=== PATIENT | female | born 1930 | race Caucasian/White ===

== ENCOUNTER 2018-08-04 20:18 | Inpatient (IN) | payer OTHER, MEDICARE ==
[~2018-08-04] VITALS: Ht 165.1 cm; Wt 90.7 kg
--- NOTE | 2018-08-04 20:50 | NUR ---
PT BIB [facility]. DAUGHTER REPORTS 3 UNWITNESSED FALLS AND INCREASED CONFUSION X3 DAYS. NO LOC OR N/V REPORTED. UNK IF PT HIT HEAD. NO TRAUMA TO HEAD NOTED. PT REPORTS PAIN IN [place] KNEES. ABRASION NOTED TO LEFT KNEE. TENDERNESS NOTED TO [place] LOWER EXTREMETIES. +1 PITTING EDEMA NOTED TO SKYLER LOWER EXTREMETIES. DAUGHTER REPORTS SWELLING IN FACE. PER MEDIC, PT HAD BLOODY NOSE ON SCENE, RESOLVED EN ROUTE. PER DAUGHTER, PT HAS BEEN ASKING FOR FAMILY THAT ISN'T PRESENT, AND LOOKING FOR OBJECTS THAT AREN'T THERE FOR THE PAST 3 DAYS, WHICH IS UNUSUAL FOR PT. PT A&O X4. GCS 15. LUNG SOUNDS CLEAR, BREATHING SLIGHTLY LABORED. PT SATURATING AT 93%, PLACED ON 2L O2 VIA NC. PT PLACED ON CHIEF PETROLEUM ENGINEER.
[2018-08-04 20:51] VITALS: Ht 165.1 cm; Wt 90.7 kg
--- NOTE | 2018-08-04 21:36 | NUR ---
PT AWAKE AND ALERT, SPEAKING IN FULL SENTENCES, ANSWERING QUESTIONS APPROPRIATELY. LAYING IN POSITION OF COMFORT, 2 BED RAILS UP, BED IN LOW AND LOCKED POSITION. VSS, RESPS E/U, NAD NOTED. CALL LIGHT W/IN REACH. DAUGHTER AT BEDSIDE.
--- NOTE | 2018-08-04 22:35 | NUR ---
PT AWAKE AND ALERT, LAYING IN POSITION OF COMFORT. 2 BED RAILS UP, BED IN LOW AND LOCKED POSITION. CALL LIGHT W/IN REACH. VSS, RESPS E/U, NAD NOTED ATHIS TIME. AWAITING ORDERS.
[2018-08-04 23:33] LABS: PLATELET COUNT 172 x10^3mcL (130-400); RED CELL DISTRIBUTION WIDTH 13.6 % (11.5-14.5)
--- NOTE | 2018-08-04 23:35 | NUR ---
PT TAKEN TO CT VIA ANNALEE
[2018-08-04 23:55] LABS: BAND NEUTROPHIL 6 % (0-10); BASOPHIL 0 % (0-2); MONOCYTE 5 % (0-7); PLATELET MORPHOLOGY PLATELETS NORMAL; SEGMENTED NEUTROPHILS 86 % (37-75); rbc morphology (normal/abnorm) NORMAL (NORMAL)
[2018-08-04 23:59] LABS: CALCIUM 9.7 mg/dL (8.5-10.1); CARBON DIOXIDE 27.7 mmol/L (21-32); CHLORIDE SERUM 108 mmol/L (98-107); CREATININE SERUM 1.8 mg/dL (0.6-1.0); GLUCOSE SERUM 124 mg/dL (74-106); SODIUM SERUM 143 mmol/L (136-145)
--- NOTE | 2018-08-05 00:06 | NUR ---
ABX STARTED PER MD ORDER. PT AWAKE AND ALERT, LAYING IN POSITION OF COMFORT. 2 BED RAILS UP, BED IN LOW AND LOCKED POSITION. VSS, RESPS E/U, NAD NOTED. DAUGHTER AT BEDSIDE
[2018-08-05 00:12] LABS: ALKALINE PHOSPHATASE 72 U/L (46-116); ALT/SGPT 22 U/L (14-59); AST/SGOT 29 U/L (15-37); FREE T4 1.25 ng/dL (0.76-1.46); LIPASE 125 IU/L (73-393); TOTAL PROTEIN, SERUM 6.4 g/dL (6.4-8.2)
[2018-08-05 00:15] LABS: ALBUMIN 2.9 g/dL (3.4-5.0)
[2018-08-05 00:20] LABS: microscopic required? YES; urine erythrocyte 2+ (NEGATIVE)
[2018-08-05] MEDS ORDERED: AMLODIPINE BES2.5 M1 (00:47)
--- NOTE | 2018-08-05 00:52 | NUR ---
REPORT GIVEN TO ISSA BERG
--- NOTE | 2018-08-05 02:00 | NUR ---
RECIEVED PT VIA [facility] FROM E/D, ACCOMPANIED BY RN AND TRANSPORTER AND PT'S GRANDDAUGHTER, DENIS. PT IS ALERT AND ORIENTED X3. CALM AND COOPERATIVE WITH CARE. WEARS BILATERAL HEARING AIDS, AND UPPER AND LOWER DENTURES. PT IS BEDFAST AT THIS TIME. PT DENIES CHEST PAIN OR DISCOMFORT AT THIS TIME. NO ACUTE RESP DISTRESS NOTED, ABD IS SOFT, ROUND AND NON-TENDER. NORMOACTIVE BOWEL SOUNDS IN ALL 4 QUADRANTS, PT HAS LEFT KNEE ABRASION NOTED, PICTURES IN CHART, IV SITE LEFT WRIST 20 GAUGE, PT HAS POSITIVE JVD TO THE LEFT SIDE OF NECK, LUNGS CTAB, BREATHING IS EQUAL AND UNLABORED. PT IS ON 2L O2 VIA NC. ORIENTATED PT AND GRANDDAUGHTER TO ROOM, BED CONTROLS, CALL LIGHT SYSTEM. SIDE RAILS UP X2, BED IN LOWEST POSITION, CALL LIGHT WITHIN REACH.
[2018-08-05 02:28] VITALS: BP 113/47
--- NOTE | 2018-08-05 03:48 | NUR ---
PT IS RESTING IN BED WITH EYES CLOSED AT THIS TIME. NO ACUTE DISTRESS NOTED. PT IS ON 2L O2 VIA NC, NO ACUTE RESP DISTRESS NOTED. IVP LASIX GIVEN. SAFETY AND COMFORT MEASURES MAINTAINED, BED IN LOWEST POSITION, CALL LIGHT WITHIN REACH.
--- NOTE | 2018-08-05 05:13 | NUR ---
PT HAS RESTED IN INTERMITTENT INTERVALS THROUGHOUT THE SHIFT. PT HAS BEEN CALM AND COOPERATIVE WITH CARE AT THIS TIME. NO ACUTE DISTRESS NOTED. NO S/S OF PAIN NOTED. PT HAS NO COMPLAINT OF PAIN AT THIS TIME. SAFETY AND COMFORT MEASURES MAINTAINED, BED IN LOWEST POSITION, CALL LIGHT WITHIN REACH. FALL PRECAUTIONS IN PLACE. WILL ENDORSE CONTINUITY OF CARE TO THE ONCOMING RN.
[2018-08-05 05:30] VITALS: BP 114/49
--- NOTE | 2018-08-05 07:01 | NUR ---
RECEIVED REPORT FROM ISSA BERG. PT RESTING COMFORTABLY IN BED HAVING ULTRASOUND OF THE CAROTID DONE. PER TECH USV WILL BE DONE ALSO. SALINE LOCK TO LT WRIST IS PATENT AND INTACT. NO REDNESS OR PAIN. TELE # [address] NO INDICATION OF CHEST PAIN. PT ON O2 2L NC. NO C/O SOB AND NO DISTRESS NOTED. ALL QUESTIONS AND CONCERNS ADDRESSED.
[2018-08-05 07:55] LABS: BASOPHIL % 0.1 % (0-2); PLATELET COUNT 163 x10^3mcL (130-400); RED CELL DISTRIBUTION WIDTH 13.4 % (11.5-14.5)
[2018-08-05 08:01] LABS: CALCIUM 9.6 mg/dL (8.5-10.1); CARBON DIOXIDE 25.4 mmol/L (21-32); CHLORIDE SERUM 110 mmol/L (98-107); CREATININE SERUM 1.7 mg/dL (0.6-1.0); GLUCOSE SERUM 137 mg/dL (74-106); MAGNESIUM 1.9 mg/dL (1.8-2.4); PHOSPHOROUS 4.3 mg/dL (2.5-4.9); POTASSIUM SERUM 4.3 mmol/L (3.5-5.1); SODIUM SERUM 144 mmol/L (136-145)
[2018-08-05 08:50] VITALS: BP 97/34
--- NOTE | 2018-08-05 08:58 | NUR ---
X RAY IN TO SEE PATIENT.
--- NOTE | 2018-08-05 09:01 | NUR ---
ROUNDS: DR ROBLES, RESIDENTS, AND PRIMARY RN AT BEDSIDE. DISCUSSED PLAN OF CARE. INQUIRED TO WHETHER OR NOT PATIENT HAS EVER HAD HEART PROBLEMS OR HAS BEEN SEEN BY A PAINTER STRUCTURAL STEEL. PT REPORTED NO. NO C/O PAIN, SOB, OR PAIN WITH URINATION. PLAN IS TO HAVE CARDIOLOGY CONSULT AND PT EVAL. ALL QUESTIONS AND CONCERNS ADDRESSED. DR SEBASTIAN ALSO INFORMED OF LOW BP 97/34.
--- NOTE | 2018-08-05 11:01 | NUR ---
PT HAVING EKG.
--- NOTE | 2018-08-05 12:00 | NUR ---
PT HAVING ECHO NOW.
[2018-08-05 12:10] VITALS: BP 127/47
--- NOTE | 2018-08-05 13:35 | NUR ---
NOTIFIED DR SEBASTIAN THAT BOLUS WAS DISCONTINUED BEFORE I WAS ABLE TO ADMINISTER HOWEVER, PATIENT'S BP HAS IMPROVED 127/[address] SEBASTIAN OK.
--- NOTE | 2018-08-05 14:17 | NUR ---
NOTIFIED DR SEBASTIAN THAT TROPONIN CONTINUES TO TREND DOWN. CURRENTLY 0.705
--- NOTE | 2018-08-05 15:24 | NUR ---
IN TO SEE PATIENT AND ASSESS NEEDS AFTER LUNCH. PT RESTING COMFORTABLY IN BED. ALL NEEDS MET.
[2018-08-05 17:40] VITALS: BP 125/49
--- NOTE | 2018-08-05 18:50 | NUR ---
REPORT GIVEN TO ISSA BERG. PATIENT RESTING COMFORTABLY IN BED. ALL NEEDS MET. IV TO LEFT WRIST IS PATENT AND INTACT. NO REDNESS OR PAIN. NO C/O PAIN. PT ON ROOM AIR. NO C/O SOB AND NO DISTRESS NOTED. ALL QUESTIONS AND CONCERNS ADDRESSED.
--- NOTE | 2018-08-05 19:15 | NUR ---
PT RECIEVED FROM THE DAY SHIFT RN. PT IS ALERT AND ORIENTED X3, CALM AND COOPERATIVE WITH CARE. PT IS ON ROOM AIR, NO ACUTE RESP DISTRESS NOTED. PT HAS NO COMPLAINT OF PAIN AT THIS TIME. SAFETY AND COMFORT MEASURES MAINTAINED, BED IN LOWEST POSITION, CALL LIGHT WITHIN REACH.
[2018-08-05 21:12] VITALS: BP 101/63
--- NOTE | 2018-08-06 00:01 | NUR ---
PT IS RESTING IN BED WITH EYES CLOSED AT THIS TIME. NO S/S OF PAIN. PT HAS BEEN CALM AND COOPERATIVE WITH CARE. SAFETY AND COMFORT MEASURES MAINTAINED, BED IN LOWEST POSITION, CALL LIGHT WITHIN REACH. WILL CONTINUE TO MONITOR AT THIS TIME.
--- NOTE | 2018-08-06 03:59 | NUR ---
PT IS RESTING IN BED WITH EYES CLOSED. NO ACUTE DISTRESS NOTED. PT HAS BEEN CALM AND COOPERATIVE WITH CARE. SAFETY AND COMFORT MEASURES MAINTAINED, BED IN LOWEST POSITION, CALL LIGHT WITHIN REACH.
--- NOTE | 2018-08-06 05:03 | NUR ---
PT HAS SLEPT IN LONG INTERVALS THROUGHOUT THE SHIFT, PT HAS BEEN ALERT AND ORIENTED X3, WITH CONFUSION SPELLS AT TIMES. PT HAS BEEN CALM AND COOPERATIVE WITH CARE. PT IS ON ROOM AIR AT THIS TIME. NO COMPLAINT OF PAIN. IV PATENT AND INTACT, SAFETY AND COMFORT MEASURES MAINTAINED, BED IN LOWEST POSITION, CALL LIGHT WITHIN REACH. WILL ENDORSE CONTINUITY OF CARE TO THE ONCOMING RN.
--- NOTE | 2018-08-06 05:14 | NUR ---
PT RHYTHM CHANGED TO JUNCTIONAL RHYTHM WITH A BBB AND DEPRESSED ST. DR WILKINS MADE AWARE AND ORDERED EKG. NO FURTHER ORDERS GIVEN.
[2018-08-06 05:46] VITALS: BP 136/53
[2018-08-06 06:43] LABS: BASOPHIL % 0.2 % (0-2); PLATELET COUNT 170 x10^3mcL (130-400); RED CELL DISTRIBUTION WIDTH 13.9 % (11.5-14.5)
[2018-08-06 06:51] LABS: CALCIUM 9.1 mg/dL (8.5-10.1); CARBON DIOXIDE 29.2 mmol/L (21-32); CHLORIDE SERUM 108 mmol/L (98-107); CREATININE SERUM 1.7 mg/dL (0.6-1.0); GLUCOSE SERUM 105 mg/dL (74-106); MAGNESIUM 1.8 mg/dL (1.8-2.4); PHOSPHOROUS 2.8 mg/dL (2.5-4.9); POTASSIUM SERUM 4.3 mmol/L (3.5-5.1); SODIUM SERUM 144 mmol/L (136-145)
--- NOTE | 2018-08-06 07:31 | NUR ---
REPORT RECEIVED. PATIENT ASLEEP ON BEDSIDE ROUNDS. RR 18 AND NOT IN APPARENT DISTRESS. BED LOW LOCKED AND ALARM ON. CALL MARTINEZ WITHIN REACH.
[2018-08-06 09:15] VITALS: BP 127/52
--- NOTE | 2018-08-06 10:23 | NUR ---
FAMILY MEMBER HERE AND WAITING FOR MORE INFORMATION RE- PATIENT EVEN AFTER MD ROBLES ANSWERED HER QUESTIONS. PAGED MD SEBASTIAN THE SECOND TIME.
--- NOTE | 2018-08-06 11:39 | NUR ---
MD SEBASTIAN SPOKE WITH VISITOR DENIS FOR UPDATE.
[2018-08-06 13:06] VITALS: BP 122/45
--- NOTE | 2018-08-06 14:13 | NUR ---
PT WAS SEEN FOR DYSPHAGIA. PT WAS ABLE TO SAFELY SWALLOW MS DIET WITH NECTAR THICK LIQUID. MILD COUGH FOR THIN LIQUID AND WET VOICE. RECOMMENDATION MS DIET WITH NECTAR THICK LIQUID SMALL BITES AND SIPS ONLY.
[2018-08-06 16:44] VITALS: BP 111/42
--- NOTE | 2018-08-06 17:01 | NUR ---
SEEN BY SPEECH THEREAPIST EARLIER TODAY. PLACED ON MODIFIED DIET. ASLEEP AT THIS TIME.
--- NOTE | 2018-08-06 19:21 | NUR ---
REPORT GIVEN TO MORENA LAGUERRE.
--- NOTE | 2018-08-06 20:42 | NUR ---
RECEIVED PT IN BED EATING [facility]. SOFT DINNER TOLERATING WELL ,PT'S AAOX3 NO ACUTE DISTRESS NOTED , [place] NOTED, LUNG SOUNDS CTA , ABD SOFT BS ACTIVE X4 , SKIN DRY WARM TO TOUCH , PIV INTACT INFUSING WELL . CALL LIGTH WITHIN PT'S REACH . WILL CON'T TO MONITOR AND ASSIST PT WITH CARE.
[2018-08-06 21:54] VITALS: BP 125/36
--- NOTE | 2018-08-06 23:00 | NUR ---
I HAVE REVIEWED THE DATA COLLECTION BY GRISELDA (NAME):CARLOTTA TELLEZ ENTERED ON (DATE/TIME):08/06/18 7P-7A I CONCUR WITH THE DATA AND ANY EXCEPTIONS OR COMMENTS ARE LISTED BELOW:
--- NOTE | 2018-08-06 23:53 | NUR ---
AT 1945 RECEIVED SBA REPORT AT BED , PT'S AAOX3 NO ACUTE DISTRESS NOTED , [place] NOTED, LUNG SOUNDS CTA , ABD SOFT BS ACTIVE X4,
--- NOTE | 2018-08-07 00:04 | NUR ---
PT'S IN BED WITH EYES CLOSED .
[2018-08-07 05:28] VITALS: BP 134/55
--- NOTE | 2018-08-07 05:43 | NUR ---
NO CHANGES OF CONDITION NOTED ,PIV INTACT INFUSING AT 10ML/ HR .BED ALARM ON FOR SAFETY .
[2018-08-07 06:57] LABS: BASOPHIL % 0.3 % (0-2); PLATELET COUNT 171 x10^3mcL (130-400); RED CELL DISTRIBUTION WIDTH 13.5 % (11.5-14.5)
[2018-08-07 07:22] LABS: CALCIUM 9.1 mg/dL (8.5-10.1); CARBON DIOXIDE 25.8 mmol/L (21-32); CHLORIDE SERUM 108 mmol/L (98-107); CREATININE SERUM 1.7 mg/dL (0.6-1.0); GLUCOSE SERUM 107 mg/dL (74-106); PHOSPHOROUS 3.5 mg/dL (2.5-4.9); POTASSIUM SERUM 4.6 mmol/L (3.5-5.1); SODIUM SERUM 139 mmol/L (136-145)
--- NOTE | 2018-08-07 07:30 | NUR ---
PT ENDORSE TO ME THIS MORNING. LAYING IN BED RESTING. AA/O X3, BREATHING EVEN AND UNLABORED ON RA, NO ACUTE RESP DISTRESS OR SOB NOTED. MEDSURG. DENIES ANY CP OR PRESSURE. VOIDS FREELY. GEN WEAKNESS, KNOWS TO CALL FOR ASSIST, BED ALARM ON. BOWEL SOUNDS ACTIVE IN ALL FOUR QUADS, DENIES ANY ABD PAIN OR DISCOMFORT AT THIS TIME. IV TO THE L WRIST INTACT AND PATENT, HEPLOCKED/ NO REDNESS OR SWELLING NOTED. CALL LGIHT IN REACH. BED IN LOW POSITON BY NURSING STATION. WILL CONTINUE PLAN OF CARE.
[2018-08-07 09:04] VITALS: BP 133/47
[2018-08-07] MEDS ORDERED: ROC1I IM (10:37)
--- NOTE | 2018-08-07 13:15 | NUR ---
Initial Nutrition Assessment: 216/A KRISTINE CONNELLY IA HR Dx: Pyelonephritis PMHx: HTN, arthritis of knees b/l and dementia PSHx: none Labs: BUN 38H, CREAT 1.7H Meds: Antivert, aspirin, zofran Diet: Mechanically soft-chopped, nectar thick liquids PO Intake: (08/07) breakfast 50% Ht: 165.1 cm (65") Wt: 90.7 kg (199#) BMI: 33.3 kg/m2 Bed scale: 199# IBW: 125# (57 kg) %IBW: 159 UBW: 199# Age: 87/F Food Allergies: NKFA Skin: intact Rashid: 16 Edema: none GI: Last BM: 08/07 Trigger: admitted w/potential risk Per H&P, Pt is a 87 yo F w PMH HTN, arthritis of knees b/l and dementia presented for evaluation of ALOC and 3 mechanical falls for last 3 days. RDN Visit (08/07): Patient was alert and oriented and had friends at bedside. RN was at bedside too and helped in [place]ian translation. Patient said that she ate 100% breakfast this morning but has poor appetite overall. Patient agreed to drink Ensure Enlive. Patient was informed that Ensure will have to be thickened if it is at room temperature to get nectar thick consistency. Per progress note (08/07), CM to arrange SNF for REHAB Problem with: N/V/D/C: no Problems with: Chewing/Swallowing: Yes, BALANCE WHEEL HAND FILER recommended MS diet w/nectar thick liquid Current appetite: poor Recent wt change: none %wt change: N/A Vitamin/Supplement use: consumes vitamins but does not remember its name Special diet at home: Regular, has poor PO at home too Physical activity: walking Nutrition education given: PO was encouraged along with importance of adequate oral nutrition and need to ONS. Food-drug interactions: none Education given: N/A Estimated Nutritional Needs Based on adjusted body weight 65 kg Energy: 6168-9377 kcal/d (25-30 kcal/kg) - Geriatric maintenance Protein: 65-78 g/d (1.0-1.2 g/kg) - preserve LBM Fluid: 0502-4494 ml/d (1 ml/kcal) or per doctor Nutrition Diagnosis 1. Inadequate oral intake related to poor appetite as evidenced by documented PO of 50%. Intervention 1. Recommend Ensure Enlive BID (w/thickener packets). ONS Ensure will provide additional 700 kcal and 40g protein. 2. Continue mechanically soft chopped diet as tolerated. Monitor/Evaluate Goal: PO intake at least 75% of estimated needs Monitor: PO intake, Labs, GI function F/U in 3-5 days as moderate risk
--- NOTE | 2018-08-07 13:15 | NUR ---
1. Recommend Ensure Enlive BID (w/thickener packets). ONS Ensure will provide additional 700 kcal and 40g protein. 2. Continue mechanically soft chopped diet as tolerated.
--- NOTE | 2018-08-07 15:53 | NUR ---
PHYSICAL THERAPY DAILY NOTES CO-SIGN All documentation done by the Geothermal Electrical Engineer for 08/07/18 has been reviewed. I agree with the documentation. Reviewed/Co-Signed by: Morelia Griffith PT Documentation Done by:RAMIRO KING PTA
[2018-08-07 16:10] VITALS: BP 133/47
--- NOTE | 2018-08-07 16:15 | NUR ---
EXPLAINED TRANSFER / DISCHARGE TO PATIENTS MAGGIE BARRIOS, SHE AGREED AND SIGNED ALL PAPERWORK. PICK IS AT 1800 PT WILL BE GOING TO [facility] ROOM 22. WILL CONTINUE TO MONITOR.
[2018-08-07 16:27] VITALS: BP 140/60
--- NOTE | 2018-08-07 16:43 | NUR ---
REPORT GIVEN TO MORENA WOOD FROM [facility].
--- NOTE | 2018-08-07 18:38 | NUR ---
NO ACUTE CHANGES AT THIS TIME. NO ACUTE RESP DISTRESS OR SOB NOTED. SITTING UP IN BED RESTING. TOLERATED 100% OF DINNER. IV TO THE L WRIST INTACT AND PATENT/ HEPLOCKED/ NO REDNESS OR SWELLING NOTED. PENDING TRANSFER TO [facility] FOR [facility]. WILL ENDORSE TO INCOMING RN.
--- NOTE | 2018-08-07 18:45 | NUR ---
INCIDENT HANDLER TIME IS ACTUALLY 1900. WILL ENDORSE.
--- NOTE | 2018-08-07 19:30 | NUR ---
REC'D PT FROM DAY NURSE. PT RESTING IN BED WITH EYES CLOSED. AWAKENS WITH VERBAL STIMULI. [place]. AAOX3. SPEECH CLEAR, FOLLOWS COMMANDS. NO HEARING AIDS OR BELONGINGS AT BEDSIDE BESIDES TORRES. PER DAY NURSE, FAMILY TOOK BELONGINGS HOME INCLUDING SKYLER HEARING AIDS. PT TO TX TO [place] TODAY. BREATHING EVEN/UNLABORED ON RA. MED SURG, NO TELE. DENIES CP, DIZZINESS, OR PALPITATIONS. ABD SOFT/ROUND/NONTENDER. VOIDING FREELY. GEN WEAKNESS. NO OPEN WOUNDS OR LESIONS. TRACE EDEMA BLE. DENIES PAIN OR DISCOMFORT. IV TO LFA FLUSHED AND PATENT. WATER GIVEN PER REQUEST- NO COUGHING NOTED WHILE DRINKING. CALL LIGHT WITHIN REACH, BED AT LOWEST POSITION. WILL CONTINUE TO MONITOR.
--- NOTE | 2018-08-07 20:01 | NUR ---
CALLED [facility] REGARDING PICKUP TIME. ETA 15 MIN.
--- NOTE | 2018-08-07 20:31 | NUR ---
REPORT AND PAPER WORK GIVEN TO [email or web address] X2. NO COMPLAINTS FROM THE PT AT THIS TIME. PT TAKEN DOWN VIA [employer]. ALL BELONGINGS WITH THE PT.
--- NOTE | 2018-08-07 20:35 | NUR ---
CALLED DENIS, PT'S GRANDDAUGHTER, AND MADE AWARE PT IS ON HER WAY TO [facility]. CONFIRMED WITH DENIS THAT SHE TOOK ALL THE PT'S BELONGINGS HOME WITH HER.
== END 2018-08-07 20:35 | DRG 720 ==
LOC: ED 20:18 → DU 08-05 00:05 → MU 08-05 00:05 → DU 08-05 01:56 → MU 08-06 13:45
PROVIDERS: Emergency Medicine; ADMIT General Practice
DX: A41.9 Sepsis, unspecified organism (principal); I21.A1 Myocardial infarction type 2; E43 Unspecified severe protein-calorie malnutrition; I50.23 Acute on chronic systolic (congestive) heart failure; N17.0 Acute kidney failure with tubular necrosis; G93.41 Metabolic encephalopathy; J18.9 Pneumonia, unspecified organism; F03.90 Unspecified dementia, unspecified severity, without behavioral disturbance, psychotic disturbance, mood disturbance, and anxiety; I13.0 Hypertensive heart and chronic kidney disease with heart failure and stage 1 through stage 4 chronic kidney disease, or unspecified chronic kidney disease; Z66 Do not resuscitate; R29.6 Repeated falls; M17.0 Bilateral primary osteoarthritis of knee; G90.8 Other disorders of autonomic nervous system; N39.0 Urinary tract infection, site not specified; R32 Unspecified urinary incontinence; R31.9 Hematuria, unspecified; N18.9 Chronic kidney disease, unspecified; Z68.33 Body mass index [BMI] 33.0-33.9, adult; Z91.81 History of falling; Z82.49 Family history of ischemic heart disease and other diseases of the circulatory system; Z82.0 Family history of epilepsy and other diseases of the nervous system
CPT/HCPCS: 83880; 84439; 92526-GN; 92610; 97110-GP; 97530-GP; G0378; J0295; J0456; J0696; J1940; J7040; J7050; Q0092